=== PATIENT | female | born 1940 | race Hispanic/Latino ===

== ENCOUNTER 2018-05-27 06:43 | Day surgery (SDC) | payer MEDICARE, OTHER ==
[2017-09-17 14:10] VITALS: BMI 28.6
--- NOTE | 2018-05-27 08:01 | CP.SDSHP ---
Same Day Surgery H & P - History Proposed Procedure: EGD Pre-Op Diagnosis: heartburn. unexplained weight loss - Previous Medical/Surgical History Cardiac: Hypertension, ASHD/CAD, Other (hyperlipidemia, ) Misc: Other (diverticulosis, Bladder cancer, colon polyps) Previous Surgical History: BO/BSO. Cholecystectomy - Allergies Allergies: Allergies No Known Allergies Allergy (Verified 08/14/16 16:50) - Physical Exam Mental Status: Alert & Oriented x3 Neuro: WNL Heart: WNL Lungs: WNL GI: WNL - Impression Impression: heartburn. unexplained weight loss Pt. Evaluated Today:Candidate for Anesthesia & Procedure: Yes - Date & Time Date: 05/27/18 Time: 08:01 Short Stay Discharge - Short Stay Discharge Admitting Diagnosis/Reason for Visit: WEIGHT LOSS / HEARTBURN / NAUSEA - VOMITING Disposition: HOME/ ROUTINE
[2018-05-27] MEDS ORDERED: Lactated Ringer's 1,000 ML IV ONE (08:17)
[2018-05-27] MEDS ORDERED: Propofol 10 mg/ml Inj (20 ML) ONE (08:27)
[2018-05-27 08:52] VITALS: TEMP 97.8
[2018-05-27 09:09] VITALS: O2SAT 100
[2018-05-27 09:41] VITALS: BP 106/61; PULSE 68; RESP 12
[2018-05-27 12:29] LABS: ALB/GLOB RATIO 0.9 (1.0-2.1); ALBUMIN 3.5 g/dL (3.5-5.0); ALT/SGPT 27 U/L (9-52); AST/SGOT 30 U/L (14-36); BLOOD UREA NITROGEN 16 mg/dL (7-17); CALCIUM 9.3 mg/dl (8.6-10.4); GFR AFRICAN-AMERICAN > 60; GFR NON-AFRICAN AMERICAN > 60
== END 2018-05-27 13:30 | disposition home or self-care (01) ==
LOC: C.ENDO 06:43
PROVIDERS: ATTEND Internal Medicine Gastroenterology
DX: K21.9 Gastro-esophageal reflux disease without esophagitis (principal); R63.4 Abnormal weight loss; R12 Heartburn; K29.70 Gastritis, unspecified, without bleeding; E78.5 Hyperlipidemia, unspecified; I10 Essential (primary) hypertension; I25.10 Atherosclerotic heart disease of native coronary artery without angina pectoris; K44.9 Diaphragmatic hernia without obstruction or gangrene
CPT/HCPCS: 36415; 43239; 80053; 88305; 88342; J2704; J7120